=== PATIENT | female | born 1970 | race Caucasian/White ===

== ENCOUNTER 2021-03-14 09:44 | Inpatient (IN) ==
[2021-03-14] MEDS ORDERED: METHYLPREDNISOLONE SOD SUCC/PF 125 MG/2 ML VIAL IV ONE (10:12)
[2021-03-14] MEDS ORDERED: NORMAL SALINE 1,000 ML IV ONE (10:12)
--- NOTE | 2021-03-14 10:20 | ERNOTE ---
Dyspnea - Date Date of Service: 03/14/21 - General Presenting Symptoms: shortness of breath, difficulty of breathing, wheezing, other - Productive cough x2-week Time Seen by Provider: 03/14/21 10:11 Source: patient Exam Limitations: no limitations - Immun/Allergies/Home Medications Immunizations: IMMUNIZATION HX Immunizations Up to Date No History of Influenza Vaccine No Hx Pneumococcal Vaccination No Allergies/Adverse Reactions: Allergies No Known Drug Allergies Allergy (Verified 03/06/21 13:43) Home Medications: HOME MEDICATIONS NK 03/14/21 [Last Taken Unknown] - History of Present Illness Narrative: 50-year-old female comes the ED complaining of productive cough for 2 weeks shortness of breath states she has been getting worse cannot catch her breath is denies any fever or chills Date (Duration): 03/14/21 Time (Timing): 10:14 Severity: moderate 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 Initiating event: Reports: upper resp illness Frequency of episodes: Reports: occassional episodes Modifying Factors - (Improves): Reports: coughing, rest Modifying Factors (Worsens): Reports: cold Associated Symptoms-Dyspnea: Reports: fever/chills, chest pain/discomfort, cough, wheezing Review of Systems - Review of Systems Constitutional: Present: fever, weakness, fatigue EYE: Present: no symptoms reported ENT: Present: no symptoms reported Respiratory: Present: shortness of breath, cough, wheezing Cardiology: Present: no symptoms reported Gastrointestinal/Abdominal: Present: no symptoms reported Genitourinary: Present: no symptoms reported Musculoskeletal: Present: no symptoms reported Skin: Present: no symptoms reported Neurological: Present: no symptoms reported Endocrine: Present: no symptoms reported Hematologic/Lymphatic: Present: no symptoms reported Psych: Present: no symptoms reported All Other Systems: All systems neg except as marked Medical History (Last Reviewed 03/14/21 @ 10:17 by Santiago Fu MD) Influenza vaccine refused Onset Date: ~01/30/21 Does not receive. ANA ROSA Narvaez Ovarian mass, right Surgical History: Surgical History (Last Reviewed 03/14/21 @ 10:17 by Santiago Fu MD) No pertinent past surgical history Family History: Family History (Last Reviewed 03/14/21 @ 09:53 by Owen Zheng RN) Mother Cancer uterine Grandmother Cancer breast Social History: (Last Reviewed 04/22/21 @ 09:53 by Owen Zheng RN) Social History: assisted: No Highest level of school completed/degree received: high school graduate Service: No Tobacco: Smoking Status: Current every day smoker tobacco type: cigarettes Smoking cigarettes per day: 20.0 Smoking packs per day: 1 Alcohol: alcohol intake: never Substance Use: substance use type: does not use Dietary Habits: caffeine: Yes Physical Exam - Physical Exam General Appearance: Present: wd/wn, alert, moderate distress Head Exam: Present: normal inspection Eye Exam: Normal inspection: bilateral, PERRL: bilateral, EOMI: bilateral Ears, Nose, Throat: Present: pharyngeal erythema, dry mucous membranes Neck: Present: normal inspection, nontender, full range of motion Respiratory: Present: respiratory distress, rhonchi, wheezing Cardiovascular/Chest: Present: tachycardia Gastrointestinal/Abdominal: Present: normal bowel sounds Back Exam: Present: normal inspection Extremity Exam: Present: normal inspection Neurological Exam: Present: alert, oriented Skin Exam: Present: warm/dry Lymphatic Exam: Present: no adenopathy Progress - Results and Orders Patient's Lab Results:: I have reviewed the patient's lab results. Results and Orders: Laboratory Tests 03/14/21 03/14/21 03/14/21 10:17 10:17 10:17 WBC 10.1 RBC 3.66 L Hgb 12.9 Hct 38.1 MCV 104.1 H MCH 35.2 H MCHC 33.9 RDW 17.7 H Plt Count 678 H Neutrophils % 84.6 H Lymphocytes % 7.6 L Sodium 120 L Plasma Sodium 121 L Potassium 4.3 Chloride 84 L Carbon Dioxide 22.0 L Anion Gap 18.3 H BUN 2 L Creatinine 0.61 Est GFR (Non-Af Amer) 110 BUN/Creatinine Ratio 3.3 L Random Glucose 151 H Lactic Acid, Venous 7.3 H* Calcium 8.7 Calcium Adj for Albumin 9.6 Total Bilirubin 0.3 AST 27 ALT 19 Alkaline Phosphatase 276 H Troponin I 0.043 Total Protein 6.7 Albumin 2.5 L - Vital Signs Patient's Vital Signs:: I have reviewed the patient's vital signs. Vital Signs: Vital Signs 03/14/21 09:45 03/14/21 10:00 Temperature 36.3 C Pulse Rate 113 H 113 H Respiratory Rate 25 H O2 Sat by Pulse Oximetry 92 L Elevated blood pressure tachycardia O2 sat low - X-Ray X-Ray #1 X-Ray: chest Interpretation: Interp. by me X-ray Comments: [facility] [id number] - [place] [id number] NAME: Marisela Zimmer : 1970 MR #: [id number] CC: LOC: ER ADM DATE: DIS DATE: X-RAY REPORT ~[id number] RAD/Chest PA & Lateral *~ Exam Date: 03/14/2021 10:46 Ordering Physician: Santiago Fu MD Chest PA Lateral * History: productive cough shortness of breath. Worsening. Technique: Frontal and lateral views of the chest. (2) views. Comparison: Prior exams, most recent is CT dated February 14, 2021. Findings: Interval worsening aeration. Increasing right upper lung, left perihilar, medial right middle lobe and left retrocardiac opacities. There is thickening of the right paratracheal stripe in prominence of the right hilar region. Scattered calcified granulomas. No pneumothorax. No pleural effusion. There is cardiac silhouette enlargement. Mediastinal contours are normal. There is mild pulmonary vascular congestion. There are degenerative changes. Decreased osseous mineralization. IMPRESSION: Interval worsening aeration. Increasing right upper lung, left perihilar, medial right middle lobe and left retrocardiac opacities. Also, there is suspected mediastinal and hilar lymphadenopathy. Neoplasia not excluded. Cardiac silhouette enlargement with mild pulmonary vascular congestion. Electronically signed by Ganesh Coley D.O.. Ganesh Coley DO Dict: 03/14/215 Typed: 03/14/215/ 03/14/21 1059 - Progress/Reassessment Chief Complaint: Dyspnea Progress:: Improved Plan - Plan Plan: Patient will be admitted to hospital Dr. Calvo check Departure Clinical Impression: Bilateral pneumonia, Hyponatremia, Hypoxia, Neoplasm of lung - Departure Disposition: Short Term Hospital Inpatient Condition: Fair Additional Instructions: Admit to Dr Zepeda Referrals: Mandeep Anne DO [Primary Care Provider] -
[2021-03-14 10:21] LABS: Hematocrit 38.1 % (37.0-47.0); Hemoglobin 12.9 gm/dL (12.5-16.0); Mean Cell Volume 104.1 fl (78-100); Mean Corpuscular Hemoglobin 35.2 pg (27-31); Mean Corpuscular Hgb Conc 33.9 g/dl (32-36); Mean Platelet Volume 8.4 fl (8-12.5); Neutrophil # 8.6 K/mm3 (1.3-6.0); Neutrophil % 84.6 % (42-75.0); Platelet Count 678 K/mm3 (150-450); Red Blood Count 3.66 M/mm3 (4.2-5.4); Red Cell Distribution Width 17.7 % (11.5-14.0); White Blood Count 10.1 K/mm3 (4.0-10.5)
[2021-03-14 10:41] LABS: Troponin I 0.043 ng/mL (0.00-0.10)
[2021-03-14 10:48] LABS: Albumin * 2.5 gm/dl (3.4-5.0); Anion Gap 18.3 mmol/L (6.8-13.8); BUN/Creatinine Ratio 3.3 (9.0-21.6); Bilirubin, Total 0.3 mg/dL (0.0-1.1); Ca. Corrected For Albumin 9.6 mg/dL (8.4-10.2); Calcium * 8.7 mg/dL (7.9-10.9); Potassium 4.3 mmol/L (3.4-4.6); Total Protein 6.7 gm/dL (6.2-8.2)
[2021-03-14] MEDS ORDERED: LEVOFLOXACIN IN DEXTROSE 5 % 750 MG/150 ML BAG IV ONE (11:25)
[2021-03-14] MEDS ORDERED: ALBUTEROL SULFATE/IPRATROPIUM 3 ML NEBU IH ONE (11:34)
[2021-03-14] MEDS: NORMAL SALINE 1,000 ML IV SCH ×2 (13:59→18:22)
[2021-03-14] MEDS: ENOXAPARIN SODIUM 40 MG/0.4 ML SYRG SC SCH (13:59)
[2021-03-14] MEDS: MORPHINE SULFATE 4 MG/ML SYRG IV PRN (14:40)
[2021-03-14] MEDS ORDERED: METOPROLOL TARTRATE 1 MG/ML AMPUL IV ONE (16:30)
[2021-03-14] MEDS ORDERED: ALBUTEROL SULFATE/IPRATROPIUM 3 ML NEBU IH PRN (16:30)
[2021-03-14] MEDS ORDERED: hydrALAZINE HCL 20 MG/ML VIAL IV PRN (16:55)
[2021-03-14] MEDS: METHYLPREDNISOLONE SOD SUCC/PF 125 MG/2 ML VIAL IV SCH (19:03)
[2021-03-14] MEDS ORDERED: diphenhydrAMINE HCL 50 MG CAPSULE PO PRN (21:41)
[2021-03-14] MEDS: NICOTINE 21 MG PATC TD SCH (21:59)
--- NOTE | 2021-03-14 22:27 | HP ---
Chief Complaint - Chief Complaint Date of Service: 03/14/21 Time of Service: 12:26 Chief Complaint: shortness of breath, hurts to breath History of Present Illness: 50-year-old female with no real pertinent history presented to the ER for 2 week s worsening shortness of breath and cough. Patient was seen in the walk-in clinic 3 weeks ago and then with myself last week for this issue. Patient had a CT scan of her chest done at that time which showed a 5 x 4 x 3 cm solid mass in the superior aspect of her right lower lobe. Malignancy suspected. Patient also also at that time when she saw me in clinic endorsed a headache that has been unrelenting for 2 weeks and she was very uncomfortable. Concern for possible metastatic disease as well. She had a PET scan and head CT ordered which she has not been able to get done. When she presented to the ER, she presented with shortness of breath and wheezing as well as productive cough for last 2 weeks. She was not hypoxic though she was mildly tachypneic and tachycardic. She has been afebrile. ER doctor started her on Levaquin for possible pneumonia. When discussed her case with him at time of admission, taught him up on the fact that she likely has malignancy in her lungs which makes sense with other lab work as her sodium came back at 120. She had lactic acid of 7.3 which trended upward to 7.7. She has a smoking history of close to 25 pack years. Mother from cancer. She is not on any chronic medications. 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 She is requiring oxygen to maintain sats at this time. Medical History (Last Reviewed 03/14/21 @ 12:54 by Billy Lowe RN) Influenza vaccine refused Onset Date: ~01/30/21 Does not receive. Brice, [employer]IST Ovarian mass, right Surgical History: Surgical History (Last Reviewed 03/14/21 @ 12:54 by Billy Lowe RN) No pertinent past surgical history Family History: Family History (Last Reviewed 03/14/21 @ 12:54 by Billy Lowe RN) Mother Cancer uterine Grandmother Cancer breast Social History: (Last Reviewed 03/14/21 @ 12:54 by Billy Lowe RN) Social History: mcfp: No Highest level of school completed/degree received: high school graduate Service: No Tobacco: Smoking Status: Current every day smoker tobacco type: cigarettes Smoking cigarettes per day: 20.0 Smoking packs per day: 1 Alcohol: alcohol intake: never Substance Use: substance use type: does not use Dietary Habits: caffeine: Yes Review Of Systems (GEN) - Review of Systems Generalized/Overall Review: Present: Weakness. Absent: Chills, Fever EENTM: Present: No Symptoms Reported Respiratory: Present: Cough, Shortness of Breath, Wheezing Cardiac: Present: No Symptoms Reported Abdominal: Present: No Symptoms Reported Genitourinary: Present: No Symptoms Reported Musculoskeletal: Present: No Symptoms Reported Neurological: Present: Headache, Anxiety, Depressed Skin: Present: No Symptoms Reported Endocrine: Present: No Symptoms Reported Immunizations: IMMUNIZATION HX Immunizations Up to Date No History of Influenza Vaccine No Hx Pneumococcal Vaccination No Allergies/Adverse Reactions: Allergies Allergy/AdvReac Type Severity Reaction Status Date / Time No Known Drug Allergies Allergy Verified 03/14/21 12:54 Home Medications: HOME MEDICATIONS NK 03/14/21 [Last Taken Unknown] Exam - Exam Vital Signs: Vital Signs - Last Taken Temp 36.2 C 03/14/21 19:07 Pulse 101 H 03/14/21 19:07 Resp 24 H 03/14/21 19:07 BP 103/79 03/14/21 19:07 Pulse Ox 97 03/14/21 19:07 Constitutional: Present: Alert, Oriented x3, Acute distress Eye Exam: bilateral eye: normal inspection, EOMI Neck: Present: non-tender Respiratory: Present: crackles, rhonchi, wheezing Cardiovascular/Chest: Present: no murmur, tachycardia Abdomen: Present: soft, nontender, nondistended Skin Exam: Present: normal color, warm/dry Neurologic: Present: no motor/sensory deficits, alert, oriented x 3 Appearance: Present: disheveled, impaired insight Eye contact: Present: cooperative, good eye contact Thoughts: Present: normal thought pattern, normal mood /affect Diagnostic Studies: Abnormal Lab Results 03/14/21 03/14/21 03/14/21 Range/Units 10:17 10:17 10:17 RBC 3.66 L (4.2-5.4) M/mm3 MCV 104.1 H (78-100) fl MCH 35.2 H (27-31) pg RDW 17.7 H (11.5-14.0) % Plt Count 678 H (150-450) K/mm3 Immature Gran % (Auto) 1.00 H (0.001-0.429) % Immature Gran # (Auto) 0.10 H (0.000-0.0310) K/mm3 Neutrophils % 84.6 H (42-75.0) % Lymphocytes % 7.6 L (20-51) % Neutrophils # 8.6 H (1.3-6.0) K/mm3 Lymphocytes # 0.77 L (1.5-3.5) k/mm3 Sodium 120 L (132-142) mmol/L Plasma Sodium 121 L (130-142) mmol/L Chloride 84 L (97-106) mmol/L Carbon Dioxide 22.0 L (24-32.6) mmol/L Anion Gap 18.3 H (6.8-13.8) mmol/L BUN 2 L (3-23) mg/dL BUN/Creatinine Ratio 3.3 L (9.0-21.6) Random Glucose 151 H (70-110) mg/dL Lactic Acid, Venous 7.3 H* (0.4-2.0) mmol/L Alkaline Phosphatase 276 H (50-170) U/L Albumin 2.5 L (3.4-5.0) gm/dl 03/14/21 Range/Units 13:10 RBC (4.2-5.4) M/mm3 MCV (78-100) fl MCH (27-31) pg RDW (11.5-14.0) % Plt Count (150-450) K/mm3 Immature Gran % (Auto) (0.001-0.429) % Immature Gran # (Auto) (0.000-0.0310) K/mm3 Neutrophils % (42-75.0) % Lymphocytes % (20-51) % Neutrophils # (1.3-6.0) K/mm3 Lymphocytes # (1.5-3.5) k/mm3 Sodium (132-142) mmol/L Plasma Sodium (130-142) mmol/L Chloride (97-106) mmol/L Carbon Dioxide (24-32.6) mmol/L Anion Gap (6.8-13.8) mmol/L BUN (3-23) mg/dL BUN/Creatinine Ratio (9.0-21.6) Random Glucose (70-110) mg/dL Lactic Acid, Venous 7.7 H* (0.4-2.0) mmol/L Alkaline Phosphatase (50-170) U/L Albumin (3.4-5.0) gm/dl Laboratory Results WBC 10.1 K/mm3 (4.0-10.5) 03/14/21 10:17 RBC 3.66 M/mm3 (4.2-5.4) L 03/14/21 10:17 Hgb 12.9 gm/dL (12.5-16.0) 03/14/21 10:17 Hct 38.1 % (37.0-47.0) 03/14/21 10:17 MCV 104.1 fl (78-100) H 03/14/21 10:17 MCH 35.2 pg (27-31) H 03/14/21 10:17 MCHC 33.9 g/dl (32-36) 03/14/21 10:17 RDW 17.7 % (11.5-14.0) H 03/14/21 10:17 Plt Count 678 K/mm3 (150-450) H 03/14/21 10:17 MPV 8.4 fl (8-12.5) 03/14/21 10:17 Immature Gran % (Auto) 1.00 % (0.001-0.429) H 03/14/21 10:17 Immature Gran # (Auto) 0.10 K/mm3 (0.000-0.0310) H 03/14/21 10:17 Neutrophils % 84.6 % (42-75.0) H 03/14/21 10:17 Lymphocytes % 7.6 % (20-51) L 03/14/21 10:17 Monocytes % 6.6 % (0.0-9) 03/14/21 10:17 Eosinophils % 0.1 % (0.0-3.0) 03/14/21 10:17 Basophils % 0.1 % (0.0-1.0) 03/14/21 10:17 Nucleated RBC % 0.0 k/mm3 (0-1) 03/14/21 10:17 Neutrophils # 8.6 K/mm3 (1.3-6.0) H 03/14/21 10:17 Lymphocytes # 0.77 k/mm3 (1.5-3.5) L 03/14/21 10:17 Monocytes # 0.7 k/mm3 (0.0-1.0) 03/14/21 10:17 Eosinophils # 0.0 k/mm3 (0.0-0.7) 03/14/21 10:17 Absolute Basophils 0.0 k/mm3 (0.0-0.1) 03/14/21 10:17 Sodium 120 mmol/L (132-142) L 03/14/21 10:17 Plasma Sodium 121 mmol/L (130-142) L 03/14/21 10:17 Potassium 4.3 mmol/L (3.4-4.6) 03/14/21 10:17 Chloride 84 mmol/L (97-106) L 03/14/21 10:17 Carbon Dioxide 22.0 mmol/L (24-32.6) L 03/14/21 10:17 Anion Gap 18.3 mmol/L (6.8-13.8) H 03/14/21 10:17 BUN 2 mg/dL (3-23) L 03/14/21 10:17 Creatinine 0.61 mg/dL (0.4-1.4) 03/14/21 10:17 Est GFR (Non-Af Amer) 110 mL/min (60-130) 03/14/21 10:17 BUN/Creatinine Ratio 3.3 (9.0-21.6) L 03/14/21 10:17 Random Glucose 151 mg/dL (70-110) H 03/14/21 10:17 Lactic Acid, Venous 7.7 mmol/L (0.4-2.0) H* 03/14/21 13:10 Calcium 8.7 mg/dL (7.9-10.9) 03/14/21 10:17 Calcium Adj for Albumin 9.6 mg/dL (8.4-10.2) 03/14/21 10:17 Total Bilirubin 0.3 mg/dL (0.0-1.1) 03/14/21 10:17 AST 27 U/L (0-48) 03/14/21 10:17 ALT 19 U/L (19-67) 03/14/21 10:17 Alkaline Phosphatase 276 U/L (50-170) H 03/14/21 10:17 Troponin I 0.043 ng/mL (0.00-0.10) 03/14/21 10:17 Total Protein 6.7 gm/dL (6.2-8.2) 03/14/21 10:17 Albumin 2.5 gm/dl (3.4-5.0) L 03/14/21 10:17 SARS-CoV-2 (PCR) Not detected (NotDetected) 03/14/21 10:58 Assessment/Plan - Narrative Narrative: 50-year-old female with no real pertinent past medical history has been dealing with lung issues for the last month. CT scan 3 weeks ago concerning for neoplasm of lung. PET scan and head CT scan has been ordered for in the outpatient setting. We will see if we get these done while here on the inpatient side. Patient was never hypoxic but was short of breath and was started on oxygen. She was requiring 1 L oxygen to remain comfortable. She was given Levaquin in the ER which we will continue. Morphine ordered for pain. Her lactic acid came back at 7.3 and then 7.7. Normal saline started at 250 mL's per hour for 2 bags and then will be continued at 125 an hour thereafter. Will repeat lactic acid this evening with reflex if still elevated 3 hours later. She was started on Solu-Medrol in the ER, will continue this for 4 more doses just to help with the inflammation in her lungs. Breathing treatments are also ordered as needed to help with wheezing and shortness of breath. Lovenox ordered for DVT prophylaxis. Morphine should also help with her tachypnea and some of her anxiety. Do not want to start too many of these kinds of medications initially but if she continues to struggle with tachycardia and nerves and then we will likely add an IV lorazepam to help calm her as she is very anxious and concerned about her diagnosis. We will repeat BMP this evening to monitor sodium. Also repeat BMP tomorrow morning part of her normal lab work-up. 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 When she is stable and able to get the rest of her work-up, we will get her into oncology likely. Patient still smokes, again recommended that she quit. Nicotine patches are ordered to be used as needed. 1.5 hours critical care time spent with patient, reviewing chart, developing a medical treatment plan, coordinating care with nursing staff and case management as well as dictating this note. - Assessment/Plan (1) Neoplasm of lung Problem: Acute (2) Hypoxia Problem: Acute (3) Shortness of breath Problem: Acute (4) Hyponatremia Problem: Acute (5) Headache Problem: Acute
[2021-03-14 23:08] LABS: Anion Gap 19.1 mmol/L (6.8-13.8); BUN/Creatinine Ratio 1.3 (9.0-21.6); Calcium * 8.2 mg/dL (7.9-10.9); Carbon Dioxide 18.7 mmol/L (24-32.6); Estimated Creat Clear 68.4; Potassium 4.8 mmol/L (3.4-4.6)
[2021-03-14] MEDS: NORMAL SALINE 1,000 ML IV PRN (23:57)
[2021-03-15] MEDS: METHYLPREDNISOLONE SOD SUCC/PF 125 MG/2 ML VIAL IV SCH ×3 (03:25→14:15)
[2021-03-15] MEDS: MORPHINE SULFATE 4 MG/ML SYRG IV PRN ×2 (03:30→11:09)
[2021-03-15] MEDS: NORMAL SALINE 1,000 ML IV PRN ×2 (07:53→17:22)
[2021-03-15] MEDS: LEVOFLOXACIN 750 MG TABLET PO SCH (11:10)
[2021-03-15 11:25] LABS: Anion Gap 17.7 mmol/L (6.8-13.8); BUN/Creatinine Ratio 4.5 (9.0-21.6); Calcium * 8.3 mg/dL (7.9-10.9); Carbon Dioxide 20.5 mmol/L (24-32.6); Estimated Creat Clear 78.6; Potassium 4.2 mmol/L (3.4-4.6)
[2021-03-15] MEDS: ENOXAPARIN SODIUM 40 MG/0.4 ML SYRG SC SCH (12:44)
[2021-03-15] MEDS: LORazepam 2 MG/ML DISP.SYRIN IV SCH ×2 (12:44→21:00)
[2021-03-15] MEDS ORDERED: METOPROLOL TARTRATE 1 MG/ML AMPUL IV ONE (14:24)
--- NOTE | 2021-03-15 16:25 | PN ---
Subjective - Date and Time Seen Date: 03/15/21 Time: 16:17 Subjective Narrative: Patient evaluated today and is fairly anxious and upset about the number of attempts labs had to do to in order to get lab draws on her. She is a tough stick and so right now we we will continue monitoring her sodium from fingersticks. Her breathing is getting better I think most of her shortness of breath may be anxiety induced as well as what ever is going on her lungs. Significant concern for malignancy in her lungs and she needs to be worked up by oncology once she is stable and can be discharged from here. Sodium is improving, up to 124 today. She has a PET scan ordered with an appointment already made at [facility]. We will work on getting her sodium back to where it is supposed to be as well as getting her pain and anxiety under control. She is also had elevated blood pressures and heart rates. Objective - Review of Systems Generalized/Overall Review: Reports: Weakness. Denies: Chills, Fever EENTM: Reports: No Symptoms Reported Respiratory: Reports: Cough, Shortness of Breath, Wheezing Cardiac: Denies: Chest Pain, Edema Abdominal: Denies: Nausea, Vomiting Genitourinary Symptoms: Reports: No Symptoms Reported Musculoskeletal Complaints: Reports: No Symptoms Reported Neurological: Reports: Headache Skin: Reports: No Symptoms Reported Endocrine: Reports: No Symptoms Reported - Vitals Vitals: Last Vital Signs Temp 36.6 C 03/15/21 14:21 Pulse 100 03/15/21 14:38 Resp 24 H 03/15/21 14:21 BP 148/72 H 03/15/21 15:05 Pulse Ox 96 03/15/21 14:21 - Abnormal Lab Findings Abnormal Lab Findings: Abnormal Lab Results 03/14/21 03/14/21 03/15/21 Range/Units 22:45 22:45 11:05 pO2 (83.0-108.0) mmHg Total CO2 (19.0-24.0) mmol/L ABG O2 Sat (Measured) (94.0-98.0) % Sodium 121 L 124 L (132-142) mmol/L Plasma Sodium 122 L 125 L (130-142) mmol/L Potassium 4.8 H (3.4-4.6) mmol/L Chloride 88 L 90 L (97-106) mmol/L Carbon Dioxide 18.7 L 20.5 L (24-32.6) mmol/L Anion Gap 19.1 H 17.7 H (6.8-13.8) mmol/L BUN 1 L (3-23) mg/dL BUN/Creatinine Ratio 1.3 L 4.5 L (9.0-21.6) Random Glucose 144 H 144 H (70-110) mg/dL Lactic Acid, Venous 6.2 H* (0.4-2.0) mmol/L 03/15/21 Range/Units 13:58 pO2 69.2 L (83.0-108.0) mmHg Total CO2 25.6 H (19.0-24.0) mmol/L ABG O2 Sat (Measured) 93.4 L (94.0-98.0) % Sodium (132-142) mmol/L Plasma Sodium (130-142) mmol/L Potassium (3.4-4.6) mmol/L Chloride (97-106) mmol/L Carbon Dioxide (24-32.6) mmol/L Anion Gap (6.8-13.8) mmol/L BUN (3-23) mg/dL BUN/Creatinine Ratio (9.0-21.6) Random Glucose (70-110) mg/dL Lactic Acid, Venous (0.4-2.0) mmol/L - Exam Constitutional: Present: Alert, Oriented x3, Moderate distress - Shortness of breath and anxiety, Thin and frail ENT Exam: Present: hearing grossly normal Neck: Present: non-tender, supple Respiratory: Present: no accessory muscle use, crackles, rhonchi Cardiovascular/Chest: Present: no murmur, tachycardia Abdomen: Present: soft, nontender, nondistended Skin Exam: Present: normal color, warm/dry Neurologic: Present: alert, oriented x 3, depressed affect - anxious Appearance: Present: disheveled, impaired insight Eye contact: Present: cooperative, increased rate of speech Thoughts: Present: normal thought pattern. Absent: normal mood /affect - animated, anxious Assessment/Plan Plan Narrative: Patient likely with neoplasm of her lung, most likely small cell carcinoma. So dium is improving. Consider adding salt tabs but will recheck a sodium level this evening prior to starting that. It is coming up. Her other lab work is been unremarkable. Unable to repeat lactic acid due to difficulty with getting her blood drawn. It was downtrending though and she shows no signs of systemic infection. Maintaining appropriate sats on 1 L nasal cannula. Blood gases ordered today as she did become fairly hypoxic after returning from her CT scan and these were unremarkable. Once patient calmed down her oxygen improved and she was doing better. Concern for possible metastatic disease to her brain as she has had a headache for close to a month now that has been unrelenting and did not respond to any kind of medication. CT scan came back unimpressive for metastatic disease or any other pathology of the brain. We will try a shot of Toradol and Benadryl to see if this will help improve her headache. Metoprolol ordered for elevated blood pressure as well as tachycardia. She will start that this evening. Hydralazine ordered for as needed blood pressures. Discussed with the nurse today why she has not received this medication in the past as she has had multiple elevated readings that fell within the parameters I set. He will make sure that it is administered when appropriate and will relay this message to the nighttime team. She has a nicotine patch on for her tobacco craving. We will continue current treatment plan otherwise. She is on Lovenox for DVT prophylaxis. Nurse to call questions or concerns. - Problems/Diagnosis (1) Neoplasm of lung Problem: Acute (2) Hypoxia Problem: Acute (3) Shortness of breath Problem: Acute (4) Hyponatremia Problem: Acute (5) Headache Problem: Acute
[2021-03-15] MEDS ORDERED: KETOROLAC TROMETHAMINE 30 MG/ML VIAL IV ONE (18:18)
[2021-03-15] MEDS ORDERED: diphenhydrAMINE HCL 50 MG/ML VIAL IV ONE (18:21)
[2021-03-15 20:53] LABS: Anion Gap 15.8 mmol/L (6.8-13.8); BUN/Creatinine Ratio 5.9 (9.0-21.6); Calcium * 8.4 mg/dL (7.9-10.9); Estimated Creat Clear 77.4; Potassium 4.8 mmol/L (3.4-4.6)
[2021-03-15] MEDS: METOPROLOL TARTRATE 25 MG TABLET PO SCH (20:57)
[2021-03-15] MEDS: NICOTINE 21 MG PATC TD SCH (21:13)
[2021-03-15] MEDS ORDERED: FUROSEMIDE 10 MG/ML VIAL IV ONE (22:42)
[2021-03-15] MEDS ORDERED: NORMAL SALINE 1,000 ML IV PRN (22:44)
[2021-03-16] MEDS: LORazepam 2 MG/ML DISP.SYRIN IV SCH (03:18)
[2021-03-16 04:34] LABS: Anion Gap 16.2 mmol/L (6.8-13.8); BUN/Creatinine Ratio 6.3 (9.0-21.6); Calcium * 8.5 mg/dL (7.9-10.9); Carbon Dioxide 27.5 mmol/L (24-32.6); Estimated Creat Clear 82.2; Potassium 3.7 mmol/L (3.4-4.6)
[2021-03-16] MEDS ORDERED: ASPIRIN 325 MG TABLET.DR PO ONE (05:30)
[2021-03-16] MEDS ORDERED: CLOPIDOGREL BISULFATE 75 MG TABLET PO ONE (05:31)
[2021-03-16] MEDS ORDERED: NITROGLYCERIN 0.4 MG/TAB BTL SL PRN (05:34)
[2021-03-16] MEDS ORDERED: ROSUVASTATIN CALCIUM 20 MG TABLET PO ONE (05:45)
[2021-03-16] MEDS ORDERED: LORazepam 2 MG/ML DISP.SYRIN IV SCH (06:00)
--- NOTE | 2021-03-16 06:44 | PN ---
Nader Note - Interim Date: 03/16/21 Time: 06:35 Narrative: 03/16/21 06:35 Patient had respiratory distress early this morning and wet lungs, IVF was stopped and IV lasix was given. Later her telemetry showed some St changes and EKg showed NSR with anteroseptal myocardial infarction, age indeterminate. She did not have CP. Troponin done was elvated at 11.7. O2, ASA, Plavix, Lovenox , Morphine was started and family was contacted. Only his significant other , Amanuel, was available and he said that he would defer it to his daughter if they want her to be transferred or treated conservatively. Patient was asked if she wanted to be transferred and she said no. Since we are not sure with her starte of mind, asked who she wanted to make her decisions for her, Amanuel or her daughters, she said Amanuel.I talked to Amanuel about thrombolytics and he did not want it but wanted her to be transferred where there is availablity of the necessary specialty- pulmonology and cardiology. 03/16/21 11:48
[2021-03-16] MEDS ORDERED: METOPROLOL TARTRATE 1 MG/ML AMPUL IV ONE (07:01)
[2021-03-16] MEDS ORDERED: FUROSEMIDE 10 MG/ML VIAL IV ONE (07:02)
[2021-03-16] MEDS: LORazepam 2 MG/ML DISP.SYRIN IV PRN ×2 (07:09→13:42)
[2021-03-16] MEDS ORDERED: LORazepam 2 MG/ML DISP.SYRIN IV PRN (09:18)
[2021-03-16] MEDS: METOPROLOL TARTRATE 25 MG TABLET PO SCH ×2 (10:05→13:04)
--- NOTE | 2021-03-16 11:45 | DS ---
Transfer Discharge Summary - Diagnosis(s)/Problems (1) Hyponatremia Problem: Acute (2) Hypoxia Problem: Acute (3) Neoplasm of lung Problem: Acute (4) Shortness of breath Problem: Acute (5) Elevated troponin Narrative: acute [place] -NSTEMI Problem: Acute - Course Description of Stay: Marisela Zimmer is [age]-year-old female with no real pertinent history presented to the ER for 2 weeks worsening shortness of breath and cough. Patient was seen in the walk-in clinic 3 weeks ago and then with myself last week for this issue. Patient had a CT scan of her chest done at that time which showed a 5 x 4 x 3 cm solid mass in the superior aspect of her right lower lobe. Malignancy suspected. Patient also also at that time when she saw Dr. Anne in clinic endorsed a headache that has been unrelenting for 2 weeks and she was very uncomfortable. Concern for possible metastatic disease as well. She had a PET scan and head CT ordered which she has not been able to get done. When she presented to the ER, she presented with shortness of breath and wheezing as well as productive cough for last 2 weeks. She was not hypoxic though she was mildly tachypneic and tachycardic. She has been afebrile. ER doctor started her on Levaquin for possible pneumonia. When discussed her case with him at time of admission, taught him up on the fact that she likely has malignancy in her lungs which makes sense with other lab work as her sodium came back at 120. She had lactic acid of 7.3 which trended upward to 7.7. She has a smoking history of close to 25 pack years. Mother from cancer. She is not on any chronic medications. 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 She is requiring oxygen to maintain sats at this time. She was started on NSS, given IV Solu-Medrol, continued with her breathing treatments and Levaquin. She had been having confusion and the nurse found out that she is a heavy drinker and only stopped a few days ago when she got sick. She was put on the CIWA protocol with Ativan coverage. Her confusion can also be due to her hyponatremia, alcohol withdrawal hallucinosis, delirium. Patient had respiratory distress early this morning and wet lungs. IVF was sto pped and IV lasix was given. Later her telemetry showed some ST changes and EKG showed NSR with anteroseptal myocardial infarction, age indeterminate. She did not have CP. Troponin done was elevated at 11.07. O2, ASA, Plavix, Lovenox , Morphine was started and family was contacted. Only his significant other , Amanuel, was available to talk with the nurse. He said that he would defer it to his daughter if they want her to be transferred or treated conservatively. Patient was asked if she wanted to be transferred and she said no. Since we were not sure with her state of mind, I asked who she wanted to make her decisions for her, Amanuel or her daughters, she said Amanuel. I talked to Amanuel that Marisela could have had an acute ST elevation OH and if he wanted transfer for further intervention or just give her thrombolytics here. He did not want it but wanted her to be transferred where there is availablity of the necessary specialty- pulmonology and cardiology. Her sodium today is 129 and her lactic acid is down to 3.6 from 6.8. While her hyponatremeia could have been SIADH induced from her lung mass the latter part of her hyponaremia could be due to hypervolemic hypotonic hyponatremia from acute CHF due Acute OH as Na went up more with diuresis. She has been accepted in [facility]. Procedures Performed: none - Results and Findings Results and Findings: Laboratory Results - last 24 hr 03/15/21 03/15/21 03/16/21 13:58 20:37 04:10 pCO2 42.7 pO2 69.2 L HCO3 24.2 Total CO2 25.6 H Base Excess -1.0 ABG pH 7.37 ABG O2 Sat (Measured) 93.4 L Sodium 126 L 128 L Plasma Sodium 127 L 129 L Potassium 4.8 H 3.7 D Chloride 93 L 88 L Carbon Dioxide 22.0 L 27.5 Anion Gap 15.8 H 16.2 H BUN 4 4 Creatinine 0.68 0.64 Est GFR (Non-Af Amer) 97 104 BUN/Creatinine Ratio 5.9 L 6.3 L Random Glucose 133 H 145 H Lactic Acid, Venous Calcium 8.4 8.5 Troponin I 03/16/21 03/16/21 04:10 04:10 pCO2 pO2 HCO3 Total CO2 Base Excess ABG pH ABG O2 Sat (Measured) Sodium Plasma Sodium Potassium Chloride Carbon Dioxide Anion Gap BUN Creatinine Est GFR (Non-Af Amer) BUN/Creatinine Ratio Random Glucose Lactic Acid, Venous 3.6 H* Calcium Troponin I 11.018 H* - Medications Medications: Active Medications Albuterol/Ipratropium (Albuterol Sulfate/Ipratropium 3 Ml Nebu) 3 ml IH Q4H PRN PRN Reason: Shortness Of Breath/Wheezing Stop: 04/13/21 16:31 Last Admin: 03/15/21 22:08 Dose: 3 ml Documented by: Diphenhydramine HCl (Diphenhydramine Hcl 50 Mg Capsule) 50 mg PO HS PRN PRN Reason: Sleep Stop: 04/13/21 21:42 Last Admin: 03/14/21 21:59 Dose: 50 mg Documented by: Enoxaparin Sodium (Enoxaparin Sodium 40 Mg/0.4 Ml Syrg) 40 mg SC Q24H AMANDA Stop: 04/13/21 13:31 Last Admin: 03/15/21 12:44 Dose: 40 mg Documented by: Sodium Chloride (Sodium Chloride 0.9%) 1,000 mls @ 30 mls/hr IV .Q24H PRN PRN Reason: HYDRATION Stop: 04/14/21 22:45 Last Admin: 03/16/21 10:27 Dose: 30 mls/hr Documented by: Levofloxacin (Levofloxacin 750 Mg Tablet) 750 mg PO DAILY@1100 AMANDA; Protocol Stop: 04/14/21 11:01 Last Admin: 03/15/21 11:10 Dose: 750 mg Documented by: Lorazepam (Lorazepam 2 Mg/Ml Disp.Syrin) 1 mg IV Q1H PRN; Protocol PRN Reason: Alcohol Withdrawal Stop: 04/15/21 06:01 Last Admin: 03/16/21 07:09 Dose: 2 mg Documented by: Lorazepam (Lorazepam 2 Mg/Ml Disp.Syrin) 2 mg IV Q1H PRN PRN Reason: Alcohol Withdrawal Stop: 04/15/21 09:31 Last Admin: 03/16/21 09:54 Dose: 2 mg Documented by: Metoprolol Tartrate (Metoprolol Tartrate 25 Mg Tablet) 25 mg PO BID AMANDA Stop: 04/14/21 21:01 Last Admin: 03/16/21 10:05 Dose: Not Given Documented by: Morphine Sulfate (Morphine Sulfate 4 Mg/Ml Syrg) 4 mg IV Q4H PRN PRN Reason: Chest Pain Stop: 04/13/21 13:31 Last Admin: 03/15/21 11:09 Dose: 4 mg Documented by: Nicotine (Nicotine 21 Mg Patc) 21 mg TD Q24H AMANDA Stop: 04/13/21 22:01 Last Admin: 03/15/21 21:13 Dose: 21 mg Documented by: Discontinued Medications Albuterol/Ipratropium (Albuterol Sulfate/Ipratropium 3 Ml Nebu) 3 ml IH ONCE ONE Stop: 03/14/21 11:35 Last Admin: 03/14/21 11:42 Dose: 3 ml Documented by: Aspirin (Aspirin 325 Mg Tablet.) 325 mg PO ONCE ONE Stop: 03/16/21 05:31 Last Admin: 03/16/21 05:51 Dose: 325 mg Documented by: Clopidogrel Bisulfate (Clopidogrel Bisulfate 75 Mg Tablet) 300 mg PO ONCE ONE Stop: 03/16/21 05:32 Last Admin: 03/16/21 05:50 Dose: 300 mg Documented by: Diphenhydramine HCl (Diphenhydramine Hcl 50 Mg/Ml Vial) 50 mg IV prn ONE Stop: 03/15/21 18:22 Last Admin: 03/15/21 18:53 Dose: 50 mg Documented by: Furosemide (Furosemide 10 Mg/Ml Vial) 40 mg IV ONCE ONE Stop: 03/15/21 22:43 Last Admin: 03/15/21 22:56 Dose: 40 mg Documented by: Furosemide (Furosemide 10 Mg/Ml Vial) 40 mg IV ONCE ONE Stop: 03/16/21 07:03 Last Admin: 03/16/21 07:10 Dose: 40 mg Documented by: Sodium Chloride (Sodium Chloride 0.9%) 1,000 mls @ 999 mls/hr IV .Q1H1M ONE Stop: 03/14/21 11:12 Last Infusion: 03/14/21 11:42 Dose: Infused Documented by: Levofloxacin/Dextrose (Levaquin) 750 mg in 150 mls @ 100 mls/hr IV ONCE ONE; Protocol Stop: 03/14/21 12:54 Last Infusion: 03/14/21 13:10 Dose: Infused Documented by: Sodium Chloride (Sodium Chloride 0.9%) 1,000 mls @ 250 mls/hr IV .Q4H AMANDA Stop: 03/14/21 21:29 Last Infusion: 03/14/21 22:22 Dose: Infused Documented by: Sodium Chloride (Sodium Chloride 0.9%) 1,000 mls @ 125 mls/hr IV .Q8H PRN PRN Reason: HYDRATION Stop: 04/13/21 23:46 Last Infusion: 03/16/21 09:46 Dose: Infused Documented by: Ketorolac Tromethamine (Ketorolac Tromethamine 30 Mg/Ml Vial) 30 mg IV prn ONE Stop: 03/15/21 18:19 Last Admin: 03/15/21 18:47 Dose: 30 mg Documented by: Lorazepam (Lorazepam 2 Mg/Ml Disp.Syrin) 1 mg IV Q8H [facility] Stop: 04/14/21 12:01 Last Admin: 03/16/21 03:18 Dose: 1 mg Documented by: Lorazepam (Lorazepam 2 Mg/Ml Disp.Syrin) 1 mg IV Q1H [facility]; Protocol Stop: 04/15/21 06:01 Last Admin: 03/16/21 06:50 Dose: Not Given Documented by: Methylprednisolone Sodium Succinate (Methylprednisolone Sod Succ/Pf 125 Mg/2 Ml Vial) 125 mg IV ONCE ONE Stop: 03/14/21 10:13 Last Admin: 03/14/21 10:34 Dose: 125 mg Documented by: Methylprednisolone Sodium Succinate (Methylprednisolone Sod Succ/Pf 125 Mg/2 Ml Vial) 62.5 mg IV Q6H [facility] Stop: 03/15/21 14:01 Last Admin: 03/15/21 14:15 Dose: 62.5 mg Documented by: Metoprolol Tartrate (Metoprolol Tartrate 1 Mg/Ml Ampul) 5 mg IV ONCE ONE Stop: 03/14/21 16:31 Last Admin: 03/14/21 17:05 Dose: 5 mg Documented by: Metoprolol Tartrate (Metoprolol Tartrate 1 Mg/Ml Ampul) 5 mg IV ONCE ONE Stop: 03/15/21 14:25 Last Admin: 03/15/21 14:30 Dose: 5 mg Documented by: Metoprolol Tartrate (Metoprolol Tartrate 1 Mg/Ml Ampul) 5 mg IV ONCE ONE Stop: 03/16/21 07:02 Last Admin: 03/16/21 07:09 Dose: 5 mg Documented by: Rosuvastatin Calcium (Rosuvastatin Calcium 20 Mg Tablet) 40 mg PO ONCE ONE Stop: 03/16/21 05:46 Last Admin: 03/16/21 05:50 Dose: 40 mg Documented by: - Disposition Disposition: Short Term Hospital Inpatient Condition: Poor Discharge Date: 03/16/21 Discharge Time: 13:30
[2021-03-16] MEDS: LEVOFLOXACIN 750 MG TABLET PO SCH (13:05)
[2021-03-16] MEDS: ENOXAPARIN SODIUM 40 MG/0.4 ML SYRG SC SCH (13:06)
[2021-03-16 13:29] VITALS: BP 160/101
== END 2021-03-16 13:45 | disposition short-term general hospital (02) | DRG 643 ==
LOC: ER 09:44 → MS 12:19
PROVIDERS: ADMIT Family Medicine; ATTEND Internal Medicine
DX: F41.9 Anxiety disorder, unspecified; F10.939 Alcohol use, unspecified with withdrawal, unspecified; R09.02 Hypoxemia; R00.0 Tachycardia, unspecified; R03.0 Elevated blood-pressure reading, without diagnosis of hypertension; D38.1 Neoplasm of uncertain behavior of trachea, bronchus and lung; R51.9 Headache, unspecified; E22.2 Syndrome of inappropriate secretion of antidiuretic hormone; R41.0 Disorientation, unspecified; I21.4 Non-ST elevation (NSTEMI) myocardial infarction; Z72.0 Tobacco use